=== PATIENT | female | born 2000 ===

== ENCOUNTER 2024-09-12 13:21 | Outpatient (REF) | payer BC, SELFPAY ==
[2024-09-12 21:30] LABS: HCT 46.2 % (36.0-46.0); HGB 15.5 g/dL (11.2-15.7); MCH 31.5 pg (27.0-33.0); MCHC 33.5 % (32.0-36.0); MCV 94 fL (80-95); Platelet Count 344 10^3/uL (130-400); RBC 4.92 10^6/uL (3.93-5.22); RDW 12.6 % (11.7-14.6); RDW-SD 43.8 fL; WBC 8.13 10^3/uL (4.4-10.8)
[2024-09-12 21:42] LABS: ALT 29 U/L (14-59); AST 32 U/L (15-37); Albumin 4.7 g/dL (3.4-5.0); Alkaline Phosphatase 90 U/L (46-116); BUN 10 mg/dL (7-18); CREATININE 0.9 mg/dL (0.55-1.02); Calcium 9.7 mg/dL (8.5-10.1); Chloride 106 mmol/L (98-107); FREE T4 2.25 ng/dL (0.76-1.46); Glucose 94 mg/dL (74-106); Potassium 4.9 mmol/L (3.5-5.1); Sodium 141 mmol/L (136-145); TSH 36.83 uIU/mL (0.36-3.74); Total Protein 8.8 g/dL (6.4-8.2)
== END 2024-09-12 13:22 | disposition home or self-care (01) ==
LOC: NCHCN 13:21
PROVIDERS: Visit Provider Internal Medicine
DX: M25.59 Pain in other specified joint (principal); R53.83 Other fatigue; E04.9 Nontoxic goiter, unspecified
CPT/HCPCS: 80053; 85027; 84439; 84443